=== PATIENT | female | born 2000 | race Caucasian/White ===

== ENCOUNTER 2021-01-22 05:28 | Outpatient (RCR) | payer BC ==
[~2021-01-22] VITALS: Ht 154.9 cm; Wt 56.8 kg
[~2021-01-22 05:28] MED LIST: ACYC400T PO; ADAL40PE5 SQ; CELE100C PO; FAMO10TA43 PO; FLUO10TA PO; PANT40TA2 PO; PANT40TA52 PO; SLF500T PO; SULF1TAB35 PO
== END 2021-01-22 09:16 | disposition home or self-care (01) ==
LOC: PREOP 05:28
PROVIDERS: ATTEND Surgery
DX: Z01.812 Encounter for preprocedural laboratory examination (principal); K21.9 Gastro-esophageal reflux disease without esophagitis; Z20.822 Contact with and (suspected) exposure to COVID-19
CPT/HCPCS: 87635

== ENCOUNTER 2021-01-24 10:35 | Day surgery (SDC) | payer BC ==
--- NOTE | 2021-01-12 08:24 | HISTORY AND PHYSICAL ---
DATE OF SERVICE: DATE OF ADMISSION: 01/24/2021. ATTENDING PRIMARY CARE PHYSICIAN: Eulalia Garnett MD HISTORY OF PRESENT ILLNESS: The patient is a 20-year-old female known to us. She has a history of peptic ulcer disease since her early teens. She also does have a history of juvenile onset arthritis and does take Humira injections 2 times a month. She takes Protonix 40 mg daily as well as Pepcid 20 mg daily. She states that this has helped tremendously. However, she has had reoccurrence of dysphagia. She underwent an EGD in 2016 and was found to have a distal esophageal stricture and reflux esophagitis stage III as well as a small hiatal hernia. She underwent an EGD and balloon dilatation at that time. Again, she has reoccurrence of dysphagia usually for lean meats as well as breads. PAST MEDICAL HISTORY: Rheumatoid arthritis, gastroesophageal reflux disease, peptic ulcer disease. PAST SURGICAL HISTORY: Tonsillectomy. ALLERGIES: No known drug allergies. MEDICATIONS: Protonix 40 mg daily, Pepcid 20 mg daily, fluoxetine 10 mg daily, Humira injection 40 mg 2 times a month, acyclovir 400 mg daily. SOCIAL HISTORY: Negative smoke, negative alcohol. FAMILY HISTORY: Noncontributory. VITAL SIGNS: Stable, currently 125.6 pounds at 5 feet 1 inch. REVIEW OF SYSTEMS: Well-nourished female, in no acute distress. She is not experiencing any shortness of breath or difficulty breathing. No chest pain, palpitations, diaphoresis. No nausea, vomiting, no diarrhea. Intermittent episodes of epigastric pain with dysphagia. No hematemesis, no coffee ground emesis. No diarrhea or constipation, no red blood per rectum, no dark tarry stools. No fever, chills, no recent inadvertent weight loss. All other review of systems negative. PHYSICAL EXAMINATION: CHEST: Clear. Good breath sounds bilaterally. HEART: Regular, no murmurs. EXTREMITIES: No lower extremity edema, negative Homans sign. HEENT: No scleral icterus. NECK: No cervical lymphadenopathy. ABDOMEN: Soft, nontender, nondistended. SKIN: Warm, dry. ASSESSMENT AND PLAN: A 20-year-old female with gastroesophageal reflux disease, peptic ulcer disease as well as a juvenile onset rheumatoid arthritis with recurrent dysphagia and we will schedule her for an EGD as well as biopsies as appropriate as well as balloon dilatation. Job ID: [id number] DocumentID: [id number] Dictated Date: 01/07/2021 16:18:27 Team Psychologist Date: 01/07/2021 16:35:05 Dictated By: MATT KELLY MD
[~2021-01-24] VITALS: Ht 154.9 cm; Wt 56.8 kg
[~2021-01-24 10:35] MED LIST changes: +LACTATED RINGERS 1,000 ML IV ONE
[2021-01-24] MEDS ORDERED: LACTATED RINGERS 1,000 ML IV STA (10:38)
[2021-01-24 10:45] VITALS: BP 129/76
[2021-01-24] MEDS ORDERED: HURRICAINE EXT TUBE (BENZOCAINE) XX PRN (10:45)
[2021-01-24] MEDS ORDERED: proPOfol 200 MG/20 ML (DIPRIVAN) VIAL IV ONE (10:49)
[2021-01-24] MEDS ORDERED: MIDAZOLAM 2 MG/2 ML (VERSED) VIAL ONE (10:49)
--- NOTE | 2021-01-24 10:51 | Progress Note-Pre Operative ---
Pre-Operative Progress Note H&P Reviewed The H&P was reviewed, patient examined and no changes noted. Date Seen by Provider: Jan 24, 2021 Time Seen by Provider: 10:30 Date H&P Reviewed: Jan 24, 2021 Time H&P Reviewed: 10:30 Pre-Operative Diagnosis: dysphagia, GERD MATT KELLY MD Jan 24, 2021 10:51
--- NOTE | 2021-01-24 10:52 | Discharge Inst-Surgical ---
D/C Lap Instructions-LETICIA Follow Up Appt in 2 weeks Activity as tolerated High Fiber Diet 25g or more per day Avoid Alcohol, Caffeine, Spicy Watson and Acid foods. Drink 64 fluid oz or more of fluids per day. Symptoms to Report: Fever over 101 degree F, Nausea/Vomiting If any problems/questions: Contact your physician or go to Emergency Room MATT KELLY MD Jan 24, 2021 10:52
[2021-01-24] MEDS ORDERED: LIDOCAINE JELLY 2% 6 ML SYRINGE ONE (10:58)
[2021-01-24] MEDS ORDERED: ONDANSETRON 4 MG/2 ML (SDV) Z0FRAN IVP PRN (11:00)
[2021-01-24] MEDS ORDERED: ACETAMINOPHEN 325 MG TABLET PO PRN (11:00)
[2021-01-24] MEDS ORDERED: morphine INJ 10 MG/ML 1ML (SYR OR VIAL) IVP PRN ×2 (11:00)
[2021-01-24] MEDS ORDERED: HYDROcodone/APAP 5 MG/325 MG (LORTAB) TAB PO PRN (11:00)
[2021-01-24 11:20] VITALS: BP 99/55
[2021-01-24 11:25] VITALS: BP 97/58
--- NOTE | 2021-01-24 11:29 | Progress Note-Post Operative ---
Post-Operative Progess Note Surgeon (s)/Conche Operator (s) Surgeon MATT KELLY MD Conche Operator: none Pre-Operative Diagnosis dysphagia, GERD Post-Operative Diagnosis reflux esophagitis(stage 2), mild distal esop stricture, small HH(1.5cm), mild gastritis. Procedure & Operative Findings Date of Procedure 01/24/21 Procedure Performed/Findings EGD with bx and balloon dilatation. Anesthesia Type mac Estimated Blood Loss Estimated blood loss (mL): minimal Specimens/Packing Specimens Removed ge jxn, antrum MATT KELLY MD Jan 24, 2021 11:29
[2021-01-24 11:30] VITALS: BP 91/54
[2021-01-24 11:45] VITALS: BP 105/69
[2021-01-24 12:06] VITALS: BP 105/69
--- NOTE | 2021-01-24 14:56 | Anesthesia-General Post-Op ---
MAC Patient Condition Mental Status/LOC: Same as Preop Cardiovascular: Satisfactory Nausea/Vomiting: Absent Respiratory: Satisfactory Pain: Controlled Complications: Absent Post Op Complications Complications None Follow Up Care/Instructions Patient Instructions None needed. Anesthesiology Discharge Order Discharge Order Patient is doing well, no complaints, stable vital signs, no apparent adverse anesthesia problems. No complications reported per nursing. DEEPAK TORRES CRNA Jan 24, 2021 14:56
--- NOTE | 2021-01-24 16:42 | OPERATIVE REPORT ---
DATE OF SERVICE: 01/24/2021 ATTENDING PRIMARY CARE PHYSICIAN: Eulalia Garnett MD PREOPERATIVE DIAGNOSES: Dysphagia, gastroesophageal reflux disease. POSTOPERATIVE DIAGNOSES: Reflux esophagitis stage II, mild distal esophageal stricture and Schatzki's ring, small hiatal hernia approximately 1.5 cm in size. Mild gastritis. No distal obstructions. PROCEDURE: EGD with biopsy and balloon dilatation. SURGEON: Matt Kelly MD. ANESTHESIA: Monitored anesthesia care. ESTIMATED BLOOD LOSS: Minimal. FINDINGS: Reflux esophagitis stage II, mild distal esophageal stricture and Schatzki's ring, small hiatal hernia approximately 1.5 cm in size. Mild gastritis. No distal obstructions. DISPOSITION: The patient tolerated the procedure well. INDICATIONS: The patient is a 20-year-old female known to us. She has a history of peptic ulcer disease since her early teens. She has a history of juvenile onset arthritis and has been taking Humira injections 2 times a month. Since that time, we placed her on Protonix 40 mg daily as well as Pepcid 20 mg daily and she states that her reflux symptoms had improved significantly. She did develop dysphagia and underwent an EGD in 2016 found to have a distal esophageal stricture as well as a reflux esophagitis stage III and a small hiatal hernia. She states that she does not have any significant symptoms of reflux, especially when she takes the two acid drying rack changer medications; however, has had recurrent dysphagia, especially for lean meats as well as dry breads and crackers. DESCRIPTION OF PROCEDURE: The patient was brought to the endoscopy suite, laid in the left lateral decubitus position. After adequate IV pain and sedative medications and monitored anesthesia care, the mouthpiece was applied. The endoscope was placed in the mouth, visualizing the pharynx and hypopharyngeal region. Vocal cords, epiglottis and vallecula identified and appeared to be normal. Endoscope was then gently intubated, the esophageal opening and esophagus insufflated. The endoscope was then advanced to the first, second and third portion of the esophagus at the level of the GE junction, a reflux esophagitis stage II identified. There was a mild distal esophageal stricture and Schatzki's ring also identified. A biopsy was taken of the GE junction with forceps with visualization of good hemostasis. The endoscope was then advanced into the stomach and endoscope retroflexed, visualizing a small hiatal hernia approximately 1.5 cm in size. There was a mild gastritis. No formal ulcerations, polyps, or any neoplasms. A biopsy was taken of the antrum to rule out H. pylori with visualization of good hemostasis. The endoscope was then advanced through the pylorus and the first and second portion of the duodenum, which appeared normal with no distal obstructions. We then proceeded with balloon dilatation of the distal esophageal stricture and the balloon was placed in the stomach and pulled back to the area of the stricture. We first proceeded to 2 then 4 atmospheres of pressure. We then reached 6 atmospheres of pressure with moderate resistance and left this in place for 20 mm in luminal diameter and left this in place for 60 seconds. The balloon was then desufflated and removed with visualization of good hemostasis as well as no mucosal tears. Endoscope was then slowly withdrawn while taking a second look and suctioning of residual air with no additional findings. The patient tolerated the procedure well. We will recommend continued medical management with the necessary lifestyle and diet accommodation including smaller more frequent meals, avoiding to eating at night as well as head elevation while lying supine. She also needs to avoid caffeinated beverages, spicy, greasy and acidic foods and continue with her daily regimen of acid reducers. Job ID: [id number] DocumentID: [id number] Dictated Date: 01/24/2021 11:23:25 Bin Filler Date: 01/24/2021 16:41:04 Dictated By: MATT KELLY MD
== END 2021-01-24 12:10 | disposition home or self-care (01) ==
LOC: ENDO 10:35
PROVIDERS: ATTEND Surgery
DX: K21.00 Gastro-esophageal reflux disease with esophagitis, without bleeding (principal); K22.2 Esophageal obstruction; K44.9 Diaphragmatic hernia without obstruction or gangrene; K21.9 Gastro-esophageal reflux disease without esophagitis; M06.9 Rheumatoid arthritis, unspecified; Z79.899 Other long term (current) drug therapy; Z87.11 Personal history of peptic ulcer disease
CPT/HCPCS: 84703; 88305

== ENCOUNTER → 2021-06-17 | Outpatient (CLI) | payer BC ==
[~2021-06-17] MED LIST changes: -ACYC400T PO; +ACYC400T21 PO; -LACTATED RINGERS 1,000 ML IV ONE; -SULF1TAB35 PO; +SULF1TAB38 PO
--- NOTE | 2021-06-17 14:34 | Diagnostic Imaging Report ---
PROCEDURE: Pelvic complete, transabdominal and transvaginal sonogram. Limited pelvic doppler. TECHNIQUE: Multiple real-time grayscale images were obtained of the pelvis in various projections transabdominally and transvaginally. Limited pelvic duplex images were obtained. HISTORY: Enlarged uterus. COMPARISON: None available. FINDINGS: Uterus: The uterus is anteverted and and measures 5.9 x 2.2 x 5.4 cm. The myometrium is homogeneous without fibroids. Endometrium: The endometrium is normal in thickness and measures 0.8 cm. There is no fluid within the endometrial cavity. Adnexa: Both ovaries have a normal physiologic appearance with a right-sided cyst measuring up to 1.4 cm. The right ovary measures 3.9 x 2.1 x 3.0 cm and the left ovary measures 3.0 x 2.3 x 1.9 cm. Duplex images reveal normal vascular flow to both ovaries. Other: There is no free fluid within the pelvis. IMPRESSION: 1. Unremarkable pelvic ultrasound. Dictated by: Dictated on workstation # [id number]
== END ==
LOC: RAD 13:00
PROVIDERS: ATTEND Obstetrics & Gynecology
DX: N85.2 Hypertrophy of uterus (principal)
CPT/HCPCS: 76830; 76856

== ENCOUNTER 2022-03-09 16:24 | Emergency (ER) | payer OTHER, BC ==
[~2022-03-09] VITALS: Ht 155 cm; Wt 61.2 kg
[2022-03-09 16:35] VITALS: BP 125/91
[2022-03-09] MEDS ORDERED: KETOROLAC 30 MG/ML VIAL IVP ONE (16:45)
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
[2022-03-09] MEDS ORDERED: NS 100 ML (IVPB) BAG IV ONE (17:30)
[2022-03-09] MEDS ORDERED: IOHEXOL 350 MG/ML 100 ML (OMNIPAQUE 350) VIAL IV ONE (17:30)
[2022-03-09 18:11] LABS: BASOPHILS % (AUTO) 0 % (0-10); EOSINOPHILS # (AUTO) 0.1 10^3/uL (0.0-0.3); EOSINOPHILS % (AUTO) 1 % (0-10); HEMATOCRIT 42 % (35-52); HEMOGLOBIN 14.5 g/dL (11.5-16.0); LYMPHOCYTES % (AUTO) 22 % (12-44); MEAN CORPUSCULAR HEMOGLOBIN 31 pg (25-34); MEAN CORPUSCULAR HGB CONC 34 g/dL (32-36); MEAN CORPUSCULAR VOLUME 90 fL (80-99); MEAN PLATELET VOLUME 8.4 fL (9.0-12.2); MONOCYTES # (AUTO) 0.5 10^3/uL (0.0-1.0); MONOCYTES % (AUTO) 6 % (0-12); NEUTROPHILS # (AUTO) 6.5 10^3/uL (1.8-7.8); NEUTROPHILS % (AUTO) 70 % (42-75); PLATELET COUNT 304 10^3/uL (130-400); WHITE BLOOD COUNT 9.2 10^3/uL (4.3-11.0)
[2022-03-09 18:17] LABS: ALBUMIN 4.8 GM/DL (3.2-4.5); CHLORIDE 103 MMOL/L (98-107); POTASSIUM 3.3 MMOL/L (3.6-5.0); SODIUM 140 MMOL/L (135-145)
[2022-03-09 18:18] LABS: CALCIUM 9.7 MG/DL (8.5-10.1)
[2022-03-09 18:19] LABS: GLUCOSE 99 MG/DL (70-105); TOTAL PROTEIN 7.4 GM/DL (6.4-8.2)
[2022-03-09 18:20] LABS: CARBON DIOXIDE 23 MMOL/L (21-32)
[2022-03-09 18:21] LABS: BILIRUBIN,TOTAL 0.4 MG/DL (0.1-1.0)
[2022-03-09 18:23] LABS: ALKALINE PHOSPHATASE 54 U/L (40-136); CREATININE SERUM 0.76 MG/DL (0.60-1.30); GFR ESTIMATED 114
[2022-03-09 18:24] LABS: BUN/CREATININE RATIO 12
[2022-03-09 18:26] LABS: ALANINE AMINOTRANSFERASE 19 U/L (0-55)
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
[2022-03-09] MEDS ORDERED: ACHD5005 PO (20:10)
== END 2022-03-09 20:31 | disposition home or self-care (01) ==
LOC: EDUNIT# 16:24 → ER 16:27
DX: S22.20XA Unspecified fracture of sternum, initial encounter for closed fracture (principal); V49.40XA Driver injured in collision with unspecified motor vehicles in traffic accident, initial encounter
CPT/HCPCS: 36415; 71260; 72125; 72128; 80053; 84703; 85025; 93005

== ENCOUNTER → 2023-09-16 | Outpatient (CLI) | payer BC ==
[~2023-09-16] MED LIST changes: +ACHD5005 PO; -FLUO10TA PO; +FLUO10TA28 PO
--- NOTE | 2023-09-16 20:03 | Diagnostic Imaging Report ---
PROCEDURE: US Gallbladder. TECHNIQUE: Multiple real-time grayscale images were obtained over the right upper quadrant in various projections. INDICATION: Right upper quadrant pain. FINDINGS: Examination is technically limited due to bowel gas. Liver is normal in size without focal lesions. There is hepatopetal flow in the main portal vein. There is no biliary duct dilatation. Common bile duct measures 3 mm. There is no cholelithiasis, gallbladder wall thickening or pericholecystic fluid. Visualized portions of the pancreas is unremarkable. Aorta is nonaneurysmal. IVC is patent. Right kidney is normal. No ascites. Banegas's sign is negative. IMPRESSION: Technically limited exam. This is however essentially unremarkable right upper quadrant ultrasound. Dictated by: Dictated on workstation # [id number]
== END ==
LOC: RAD 14:28
PROVIDERS: ATTEND Family Medicine
DX: R10.11 Right upper quadrant pain (principal)
CPT/HCPCS: 76705

== ENCOUNTER → 2023-10-04 | Outpatient (CLI) | payer BC ==
[~2023-10-04] MED LIST changes: +CATHETER FLUSH 10 ML SYR IVP PRN
--- NOTE | 2023-10-04 14:31 | Diagnostic Imaging Report ---
INDICATION: Right upper quadrant pain. TECHNIQUE: Patient was administered 5.1 mCi technetium-99m Choletec intravenously, and imaging over the abdomen was performed. After 60 minutes, patient ingested 8 ounces of Ensure, and a gallbladder ejection fraction was calculated. FINDINGS: There is homogeneous uptake of activity by the liver with prompt excretion of activity into the common duct. There is activity seen within the gallbladder. Passage of activity into the small bowel is noted. Gallbladder ejection fraction is low at 15%. Normal values are 35% or greater. IMPRESSION: 1. Patent cystic duct and common bile duct. 2. Gallbladder ejection fraction of 15%. Dictated by: Dictated on workstation # [id number]
== END ==
LOC: CARD 09:50
PROVIDERS: ATTEND Family Medicine
DX: R10.11 Right upper quadrant pain (principal)
CPT/HCPCS: 78227; A9537